=== PATIENT | female | born 1980 | race Caucasian/White ===

== ENCOUNTER → 2019-05-15 | Outpatient (CLI) | payer BC ==
--- NOTE | 2019-05-15 10:26 | RAD ---
CT HEAD WO CONTRAST History: Headache for 3 months Comparison: None. Technique: Noncontrast CT imaging was performed of the head. Exposure: One or more of the following individualized dose reduction techniques were utilized for this examination: 1. Automated exposure control 2. Adjustment of the mA and/or kV according to patient size 3. Use of iterative reconstruction technique. Findings: No acute extra-axial or parenchymal hemorrhage is identified. There is no significant intra-axial mass effect, midline shift, or extra-axial fluid collection. The dewey-white differentiation of the major vascular territories is preserved. The ventricles, sulci, and cisterns are within normal limits in size and configuration. The mastoid air cells and the visualized paranasal sinuses are aerated. No acute calvarial abnormality is identified. Impression: 1. No acute intracranial abnormality is identified. Electronically signed by: Salvador Cosby MD (05/15/2019 10:23 AM) [id number]
== END | disposition home or self-care (01) ==
LOC: CT 09:48 → MERGE 10:00
PROVIDERS: ATTEND Physician Assistant Medical
DX: R51 Headache (principal); I10 Essential (primary) hypertension
CPT/HCPCS: 70450

== ENCOUNTER → 2020-03-29 | Outpatient (CLI) | payer BC ==
--- NOTE | 2020-03-29 15:11 | RAD ---
RIBS RIGHT AND PA CHEST History: Cough. Right mid to lower rib pain. Technique: PA view the chest. 3 additional views of the right ribs. Comparison: CT February 13, 2018. Findings: No consolidation or pleural effusion. Normal heart size. No pneumothorax. Right anterior lateral sixth subacute to chronic rib fracture. Bilateral breast implants noted. Chronic left-sided rib fracture. Impression: 1. No acute cardiac pulmonary process. 2. Subacute to chronic right anterior lateral sixth rib fracture. Electronically signed by: Lupillo Booker DO (03/29/2020 3:08 PM) [id number]
== END | disposition home or self-care (01) ==
LOC: PMG 14:30
PROVIDERS: ATTEND Physician Assistant
DX: S22.31XA Fracture of one rib, right side, initial encounter for closed fracture (principal); X58.XXXA Exposure to other specified factors, initial encounter; Y93.89 Activity, other specified; Y92.89 Other specified places as the place of occurrence of the external cause; Y99.8 Other external cause status
CPT/HCPCS: 71101

== ENCOUNTER → 2020-05-10 | Outpatient (CLI) | payer BC ==
[~2020-05-10] MED LIST: ESCITALOPRAM OX20 MG PO; LISI-338 PO
== END | disposition home or self-care (01) ==
LOC: LAB 11:00
PROVIDERS: ATTEND Registered Nurse
DX: Z11.59 Encounter for screening for other viral diseases (principal)
CPT/HCPCS: C9803; U0003; 87426

== ENCOUNTER → 2020-05-13 | Day surgery (SDC) | payer BC ==
[~2020-05-13] MED LIST changes: +IPRATRPIUM/ALBUTEROL 0.5/2.5MG 3 ML NEBU. NEB PRN; +IV RINGERS SOLUTION,LACTATED 1,000 ML IV SCH; +PROPOFOL 10,000 MCG/ML (20ML) VIAL IV ONE
[2020-05-13 08:25] VITALS: BP 102/68
--- NOTE | 2020-05-14 17:07 | PATHOLOGY ---
[facility] Accession Number: [id number] . 01 Material submitted: . PART A: stomach - ANTRUM PART B: duodenum - DUODENUM PART C: colon - RIGHT COLON, RANDOM BIOPSY. Modifiers: right PART D: colon - LEFT COLON, RANDOM BIOPSY. Modifiers: left PART E: cecum - CECAL POLYP PART F: colon - TRANSVERSE POLYP. Modifiers: transverse . 01 Clinical history: . A: R/O H. pylori/gastritis B: R/O celiac . 02 Diagnosis: A. Gastric biopsies, antrum: - Congestion and focal mild chronic inflammation. . B. Duodenal biopsies: - No significant pathologic abnormalities. . C. Colonic mucosa, right colon random biopsies: - No significant pathologic abnormalities. . D. Colonic mucosa, left colon random biopsies: - No significant pathologic abnormalities. . E. Colon biopsies, cecal polyp: - Tubular adenoma. . F. Colon biopsies, transverse colon polyp: - Mixed hyperplastic/adenomatous polyp. . (JPM:merari; 05/14/2020) [facility] 05/14/2020 1041 Local . 02 Comment: Sections of the gastric antral biopsy show congestion and focal mild chronic inflammation. A properly controlled immunoperoxidase stain for Helicobacter is negative for Helicobacter organisms. . Sections of the duodenal biopsy reveal segments of duodenal mucosa. Where best oriented, mucosal villi show no sprue-like changes or significant inflammatory changes. . Sections of the right colon and left colon random biopsies appear similar and reveal multiple segments of colonic mucosa containing several mucosal-associated lymphoid aggregates. There is no evidence of a chronic destructive colitis, lymphocytic colitis, or collagenous colitis. . Sections of the cecal biopsy reveal a tubular adenoma showing no high-grade dysplasia or evidence of malignancy. . Sections of the transverse colon biopsy reveal a benign polyp having hyperplastic and focal adenomatous features. There is no high-grade dysplasia or evidence of malignancy. . 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 . Special stain performed: Immunoperoxidase stain for Helicobacter on A1. . 02 Electronically signed: . Rolando Nguyen MD, Pathologist NPI- [id number] . 01 Gross description: . A. The specimen is received in formalin, labeled "Rylie Baldo, antrum, R/O H. pylori". Received are two segments of pale chavez soft tissue ranging in size from 0.3 to 0.4 cm in maximum dimensions. The specimen is submitted entirely in cassette A1. . B. The specimen is received in formalin, labeled "Rylie Baldo, duodenum, R/O celiac". Received are three segments of pale chavez soft tissue ranging in size from 0.3 to 0.4 cm in maximum dimensions. The specimen is submitted entirely in cassette B1. . C. The specimen is received in formalin, labeled "Rylie Baldo, right colon random biopsy". Received are five segments of pale chavez soft tissue ranging in size from 0.2 to 0.8 cm in maximum dimensions. The specimen is submitted entirely in cassette C1. . D. The specimen is received in formalin, labeled "Rylie Badlo, left colon random biopsy". Received are four segments of pale chavez soft tissue ranging in size from 0.3 to 0.4 cm in maximum dimensions. The specimen is submitted entirely in cassette D1. . E. The specimen is received in formalin, labeled "Rylie Baldo, cecal polyp". Received are four segments of pale chavez soft tissue ranging in size from 0.2 to 0.5 cm in maximum dimensions. The specimen is submitted entirely in cassette E1. . F. The specimen is received in formalin, labeled "Ryile Baldo, transverse polyp". Received are three segments of pale chavez soft tissue ranging in size from 0.3 to 0.8 cm in maximum dimensions. The specimen is submitted entirely in cassette F1. (CAA; 05/13/2020) QA/QA 05/13/2020 1644 Local . 02 Pathologist provided ICD-10: K29.50, D12.0, D12.3 . 02 CPT . 302318, 424932, 250009, 324785, 845531, [id number], [id number] Specimen Comment: A courtesy copy of this report has been sent to [phone], [phone] Specimen Comment: [id number] Specimen Comment: Report sent to / DR CEDILLO Performed at: [address], [place] [id number] MD Tanvir Palomares MD Phone: [phone] Performed at: 02 [facility] [address] [place], [place] [id number] MD Rolando Nguyen MD Phone: [phone]
== END | disposition home or self-care (01) ==
LOC: SURG 06:22
PROVIDERS: ATTEND Internal Medicine Gastroenterology
DX: R19.7 Diarrhea, unspecified (principal); D12.0 Benign neoplasm of cecum; D12.3 Benign neoplasm of transverse colon; K64.8 Other hemorrhoids; K29.50 Unspecified chronic gastritis without bleeding; K21.0 Gastro-esophageal reflux disease with esophagitis; I10 Essential (primary) hypertension; G47.33 Obstructive sleep apnea (adult) (pediatric); F32.9 Major depressive disorder, single episode, unspecified; E66.9 Obesity, unspecified; F17.210 Nicotine dependence, cigarettes, uncomplicated; J45.909 Unspecified asthma, uncomplicated; F41.9 Anxiety disorder, unspecified; Z68.31 Body mass index [BMI] 31.0-31.9, adult; Z86.010 Personal history of colon polyps; Z98.890 Other specified postprocedural states; Z79.899 Other long term (current) drug therapy
CPT/HCPCS: 43239; 45380; J2704; J7120

== ENCOUNTER → 2020-11-16 | Outpatient (CLI) | payer BC ==
[2020-05-13 08:25] VITALS: BP 102/68
[~2020-11-16] MED LIST changes: -IPRATRPIUM/ALBUTEROL 0.5/2.5MG 3 ML NEBU. NEB PRN; -IV RINGERS SOLUTION,LACTATED 1,000 ML IV SCH; -PROPOFOL 10,000 MCG/ML (20ML) VIAL IV ONE
--- NOTE | 2020-11-16 21:43 | RAD ---
Exam: Right RIBS with PA chest INDICATION: Right frontal mid thoracic pain, coughing TECHNIQUE: Frontal view of the chest with frontal and oblique views of the right wrist Comparisons: 03/29/2020 FINDINGS: The cardiomediastinal silhouette and pulmonary vessels are within normal limits. The lung and pleural spaces are clear. No displaced rib fractures are identified. IMPRESSION: 1. No acute cardiopulmonary process. 2. No displaced rib fractures. Electronically signed by: Sally Turner MD (11/16/2020 9:41 PM) [facility]
== END ==
LOC: PMG 15:13
PROVIDERS: ATTEND Physician Assistant Medical
DX: R07.82 Intercostal pain (principal); R05 Cough
CPT/HCPCS: 71101

== ENCOUNTER → 2020-12-21 | Outpatient (CLI) | payer BC ==
[2020-05-13 08:25] VITALS: BP 102/68
--- NOTE | 2020-12-21 15:56 | RAD ---
EXAM: DUAL ENERGY X-RAY ABSORPTIOMETRY (DEXA). HISTORY: Postmenopausal screening. FINDINGS: The lowest measured T-score is -0.9 in the right femoral neck, based on a bone mineral dens ity of 0.908 g/cm^2. Refer to the worksheets for full detail. No comparison examinations are available. IMPRESSION: Normal. Bone mineral density yields a T-score of -1.0 or greater. Fracture risk is low. FRAX was not calculated. METHODOLOGY: Dual energy x-ray absorptiometry was performed to measure bone mineral density. The foll owing analysis is based on the 2019 Official Positions of the International Society for Clinical Dens itometry: Measurements of the hips and the average of L1-L4 are preferred. When the spine and/or hip cannot be feasibly measured or interpreted, or in the setting of hyperparathyroidism, distal radial bone minera l density may be measured. The lumbar spine T-score is based on the average bone mineral density of L1-L4. In the setting of art ifact or anatomic abnormality, some lumbar levels may be excluded, and the remaining levels used for calculation. A single lumbar level is not used for diagnosis, and if only a single level is available for assessment, another anatomic site will be used to assign a diagnosis. The hip T-score is based on the bone mineral density measurement of the femoral neck or total proxima l femur of either side, whichever is lowest. Bilateral mean values are not used for diagnosis. The forearm T-score is derived from 33% of the distal radius of the nondominant forearm. For postmenopausal and perimenopausal women, and men age 50 or older, of all ethnic groups, T-scores are calculated through comparison of the current measurement with the NHANES III database standard fo r females aged 20-29 years. The lowest T-score of the evaluated anatomic sites is used to a ssign a diagnosis based on the World Health Organization densitometric classification. In premenopausal females and males younger than age 50, a Z-score is calculated based on population s pecific reference data for patient sex and self-reported ethnicity. Electronically signed by: Rufina Pacheco MD (12/21/2020 3:54 PM) [id number]
--- NOTE | 2020-12-23 16:36 | RAD ---
EXAMINATION: MG BILAT SCREEN+RUBENS CLINICAL HISTORY: Routine screening TECHNIQUE: Digital craniocaudal and mediolateral oblique views of the bilateral breasts obtained with and without implant displacement with 3-D tomosynthesis. COMPARISON: 12/18/2019, 12/26/2018, 10/12/2017 BREAST COMPOSITION: The breasts are heterogeneously dense, which may obscure small masses. FINDINGS: No evidence of suspicious mass, calcifications, or areas of architectural distortion. Intact bilatera l retropectoral saline implants. IMPRESSION: No mammographic evidence of malignancy. BI-RADS ASSESSMENT: Category 2: Benign RECOMMENDATION: Return for routine bilateral screening mammogram in one year. PQRS compliance statement - Patient information was entered into a reminder system with a target due date for the next mammogram. "Our facility is accredited by the [employer] Mammography [employer]." Electronically signed by: Rajiv Kovacs DO (12/23/2020 4:33 PM) [id number]
== END ==
LOC: DXRAD 14:29
PROVIDERS: ATTEND Physician Assistant Medical
DX: Z12.31 Encounter for screening mammogram for malignant neoplasm of breast (principal); S22.39XA Fracture of one rib, unspecified side, initial encounter for closed fracture; X58.XXXA Exposure to other specified factors, initial encounter; Y92.89 Other specified places as the place of occurrence of the external cause; Y99.8 Other external cause status; Y93.89 Activity, other specified
CPT/HCPCS: 77063; 77067; 77080

== ENCOUNTER → 2021-12-28 | Outpatient (CLI) | payer BC ==
[2020-05-13 08:25] VITALS: BP 102/68
[~2021-12-28] MED LIST changes: -LISI-338 PO; +LISI5TAB15 PO
--- NOTE | 2021-12-28 16:45 | RAD ---
DATE: 12/28/2021 EXAM: MG BILAT SCREEN+RUBENS HISTORY: Family history of mother, maternal grandmother, maternal aunt with breast cancer. COMPARISON: 12/21/2020 and 12/18/2019 This study was interpreted with the benefit of Computerized Aided Detection (CAD). Breast Density: SCATTERED The breast parenchyma shows scattered fibroglandular densities. Breast pare nchyma level B. FINDINGS: There are bilateral retropectoral saline implants. No suspicious mass, suspicious calcifica tion, or architectural distortion. IMPRESSION: No evidence of malignancy. BI-RADS CATEGORY: 2 BENIGN FINDING(S) RECOMMENDED FOLLOW-UP: 12M 12 MONTH FOLLOW-UP PQRS compliance statement: Patient information was entered into a reminder system with a target due d ate for the next mammogram. Mammography is a sensitive method for finding small breast cancers, but it does not detect them all a nd is not a substitute for careful clinical examination. A negative mammogram does not negate a clin ically suspicious finding and should not result in delay in biopsying a clinically suspicious abnorma lity. "Our facility is accredited by the [employer] Mammography [employer]." Electronically signed by: Swati Pressley MD (12/28/2021 4:43 PM) [email or web address]
== END ==
LOC: MAMMO 15:35
PROVIDERS: ATTEND Physician Assistant Medical
DX: Z12.31 Encounter for screening mammogram for malignant neoplasm of breast (principal)
CPT/HCPCS: 77063; 77067